=== PATIENT | female | born 1995 | race African-American/Black ===

== ENCOUNTER 2017-07-13 00:48 | Emergency (ER) | payer OTHER ==
[2017-07-13] MEDS ORDERED: ACETAMINOPHEN 325 MG TABLET PO ONE (01:52)
[2017-07-13] MEDS ORDERED: DEXAMETHASONE 4 MG TABLET PO ONE (01:52)
--- NOTE | 2017-07-13 01:53 | ER Document Report ---
ED General - General Chief Complaint: Sore Throat Stated Complaint: SORE THROAT Time Seen by Provider: 07/13/17 01:43 Notes: Patient is a 22-year-old female without a past medical history who presents with 3 days of sore throat and swollen lymph nodes. She does describe the sore throat as a constant, stretching, burning pain. She states she has tried cold medicine without any improvement of the pain. Swallowing worsens the pain. She is also noted diffuse cervical lymphadenopathy. She has not seen her primary doctor regarding today's concerns. She does not believe she has had similar symptoms in the past. She denies any difficulty breathing or swallowing. No fever. TRAVEL OUTSIDE OF THE [place] IN LAST 30 DAYS: No - Related Data Allergies/Adverse Reactions: No Known Allergies Allergy (Verified 07/13/17 00:53) Past Medical History - General Information source: Patient - Social History Smoking Status: Never Smoker Frequency of alcohol use: None Drug Abuse: None Lives with: Family Family History: Reviewed & Not Pertinent Review of Systems - Review of Systems Notes: Constitutional: Negative for fever. HENT: Positive for sore throat. Eyes: Negative for visual changes. Cardiovascular: Negative for chest pain. Respiratory: Negative for shortness of breath. Gastrointestinal: Negative for abdominal pain, vomiting or diarrhea. Genitourinary: Negative for dysuria. Musculoskeletal: Negative for back pain. Skin: Negative for rash. Neurological: Negative for headaches, weakness or numbness. 10 point ROS negative except as marked above and in HPI. Physical Exam - Vital signs Vitals: Temp Pulse Resp BP Pulse Ox 99.2 F 97 18 129/94 H 98 07/13/17 00:53 07/13/17 00:53 07/13/17 00:53 07/13/17 00:53 07/13/17 00:53 Interpretation: Normal Notes: PHYSICAL EXAMINATION: GENERAL: Well-appearing, well-nourished and in no acute distress. HEAD: Atraumatic, normocephalic. EYES: Pupils equal round and reactive to light, extraocular movements intact, sclera anicteric, conjunctiva are normal. ENT: nares patent, bilateral tonsillar exudates. Uvula is midline. Moist mucous membranes. NECK: Normal range of motion, bilateral anterior cervical lymphadenopathy. LUNGS: Breath sounds clear to auscultation bilaterally and equal. No wheezes rales or rhonchi. HEART: Regular rate and rhythm without murmurs ABDOMEN: Soft, nontender, normoactive bowel sounds. No guarding, no rebound. No masses appreciated. EXTREMITIES: Normal range of motion, no pitting or edema. No cyanosis. NEUROLOGICAL: No focal neurological deficits. Moves all extremities spontaneously and on command. PSYCH: Normal mood, normal affect. SKIN: Warm, Dry, normal turgor, no rashes or lesions noted. Course - Re-evaluation Re-evalutation: 07/13/17 01:53 Presentation of several days of sore throat in an otherwise well-appearing patient. Rapid strep is negative. History and exam are not consistent with a retropharyngeal abscess or peritonsillar abscess. Airway is patent. No difficulty handling oral secretions. Vitals within normal limits. Patient has been treated with a dose of dexamethasone. At this time will discharge with return precautions and follow-up recommendations. Verbal discharge instructions given a the bedside and opportunity for questions given. Medication warnings reviewed. Patient is in agreement with this plan and has verbalized understanding of return precautions and the need for primary care follow-up in the next 24-72 hours. - Vital Signs Vital signs: Temp Pulse Resp BP Pulse Ox 99.2 F 97 18 129/94 H 98 07/13/17 00:53 07/13/17 00:53 07/13/17 00:53 07/13/17 00:53 07/13/17 00:53 Discharge - Discharge Clinical Impression: Viral pharyngitis, Sore throat Condition: Good Disposition: HOME, SELF-CARE Additional Instructions: Your strep test is negative. Your symptoms are likely due to an viral infection and will resolve in the next 1-2 weeks. You have also been given a dose of steroids to help with your throat discomfort. Please continue to take ibuprofen 600 mg every 6 hours or Tylenol 1000 mg every 6 hours as needed for throat discomfort. You can also gargle with salt water. Continue to drink plenty of fluids. Follow-up with your primary care doctor in the next several days. Return if you become unable to swallow, have difficulty breathing, pass out, have persistent vomiting that prevents you from being able to tolerate fluids, or have any other symptoms that are concerning to you.
[2017-07-13 03:47] VITALS: BP 124/71
== END 2017-07-13 03:46 | disposition home or self-care (01) ==
LOC: ER 00:48
DX: J02.8 Acute pharyngitis due to other specified organisms (principal); B97.89 Other viral agents as the cause of diseases classified elsewhere
CPT/HCPCS: 87070; 87880; 99283

== ENCOUNTER 2017-07-27 22:14 | Emergency (ER) | payer OTHER ==
[2017-07-27 22:58] VITALS: BP 131/63
--- NOTE | 2017-07-28 00:16 | ER Document Report ---
ED General - General Chief Complaint: STD Exposure Stated Complaint: STD CHECK Time Seen by Provider: 07/28/17 00:06 Notes: Patient is a 22-year-old female who presents with concerns of a possible exposure to HSV 2. She was contacted by her former sexual partner today who told her that he may have HSV-2 and encourage her to get checked out. Patient states that she was quite panicked about this so she came immediately to the emergency department with her current significant other. She denies any symptoms of any sexually transmitted infections. No lesions, discharge, or dysuria. No prior history of sexually transmitted infections. TRAVEL OUTSIDE OF THE [place] IN LAST 30 DAYS: No - Related Data Allergies/Adverse Reactions: No Known Allergies Allergy (Verified 07/13/17 00:53) Past Medical History - General Information source: Patient - Social History Smoking Status: Never Smoker Frequency of alcohol use: None Drug Abuse: None Lives with: Spouse/Significant other Family History: Reviewed & Not Pertinent Patient has suicidal ideation: No Patient has homicidal ideation: No Renal/ Medical History: Denies: Hx Peritoneal Dialysis Review of Systems - Review of Systems Notes: Constitutional: Negative for fever. Cardiovascular: Negative for chest pain. Respiratory: Negative for shortness of breath. Gastrointestinal: Negative for vomiting Musculoskeletal: Negative for back pain. Skin: Negative for rash. Neurological: Negative for weakness or numbness. 10 point ROS negative except as marked above and in HPI. Physical Exam - Vital signs Vitals: Temp Pulse Resp BP Pulse Ox 99.5 F 83 16 131/63 H 98 07/27/17 22:57 07/27/17 22:57 07/27/17 22:57 07/27/17 22:57 07/27/17 22:57 Interpretation: Normal Notes: PHYSICAL EXAMINATION: GENERAL: Well-appearing, well-nourished and in no acute distress. HEAD: Atraumatic, normocephalic. EYES: sclera anicteric, conjunctiva are normal. ENT: Moist mucous membranes. NECK: Normal range of motion LUNGS: Normal work of breathing EXTREMITIES: no pitting or edema. No cyanosis. NEUROLOGICAL: No focal neurological deficits. Moves all extremities spontaneously and on command. PSYCH: Normal mood, normal affect. SKIN: Warm, Dry, normal turgor, no rashes or lesions noted. Course - Re-evaluation Re-evalutation: 07/28/17 00:14 Presentation of an asymptomatic patient with no symptoms concerned with a possible exposure to herpes. Her partner contacted her informed her that he may have type II herpes and instructed her that she should get checked. Patient denies any symptoms. States that she was simply "freaked out" after the phone call. I have informed the patient that given the absence of any symptoms in the illness of concern being HSV-2, it is unlikely that she has contracted this given that she has never had any lesions to the genital area. However, I have encouraged the patient and her significant other who also is a patient to have a full panel of STI testing performed at the local health department. At this time will discharge with return precautions and follow-up recommendations. Verbal discharge instructions given a the bedside and opportunity for questions given. Medication warnings reviewed. Patient is in agreement with this plan and has verbalized understanding of return precautions and the need for health department follow-up in the next 24-72 hours. - Vital Signs Vital signs: Temp Pulse Resp BP Pulse Ox 99.5 F 83 16 131/63 H 98 07/27/17 22:57 07/27/17 22:57 07/27/17 22:57 07/27/17 22:57 07/27/17 22:57 Discharge - Discharge Clinical Impression: Exposure to STD Condition: Good Disposition: HOME, SELF-CARE Additional Instructions: Please follow-up at the local health department for STI testing. Address: [address] [place] [address] Hours: Wed-Wed 8am-4pm Th 12p-4p Wed 8a-4p
== END 2017-07-28 01:12 | disposition home or self-care (01) ==
LOC: ER 22:14
DX: Z20.2 Contact with and (suspected) exposure to infections with a predominantly sexual mode of transmission (principal)
CPT/HCPCS: 99283

== ENCOUNTER 2018-09-02 15:06 | Emergency (ER) | payer SELFPAY ==
[2018-09-02 15:58] VITALS: BP 123/66
[2018-09-02] MEDS ORDERED: TETRACAINE HCL 0.5% OPH SOLN 4 ML OU ONE (16:51)
--- NOTE | 2018-09-02 16:53 | ER Document Report ---
HPI - HPI Patient complains to provider of: Eye drainage Time Seen by Provider: 09/02/18 16:37 Onset: Other - 10 days Onset/Duration: Persistent Quality of pain: Burning Pain Level: 2 Context: Patient complains of bilateral eye redness, itching and matting. Patient reports drainage that metastases her eyes closed in the morning. Patient denies any use of contact lenses or glasses. Patient denies any trauma to the eyes. Associated Symptoms: denies: Fever Exacerbated by: Denies Relieved by: Denies Similar symptoms previously: No Recently seen / treated by doctor: No - ROS ROS below otherwise negative: Yes Systems Reviewed and Negative: Yes All other systems reviewed and negative - CONSTITUTIONAL Constitutional: DENIES: Fever - EENT EENT: REPORTS: Eye problems - GASTROINTESTINAL Gastrointestinal: DENIES: Nausea - REPRODUCTIVE Reproductive: DENIES: : - DERM Skin Color: Normal Skin Problems: None Past Medical History - General Information source: Patient - Social History Smoking Status: Current Every Day Smoker Smoking Education Provided: Yes Frequency of alcohol use: Occasional Drug Abuse: None Occupation: none Family History: Reviewed & Not Pertinent - Medical History Medical History: Negative Renal/ Medical History: Denies: Hx Peritoneal Dialysis Surgical Hx: Negative Vertical Provider Document - CONSTITUTIONAL Agree With Documented VS: Yes Exam Limitations: No Limitations General Appearance: WD/WN, No Apparent Distress - INFECTION CONTROL TRAVEL OUTSIDE OF THE [place] IN LAST 30 DAYS: No - HEENT HEENT: Atraumatic, Normocephalic Notes: Mild injection of sclera bilaterally, extraocular movements intact. No corneal abrasion ulcer or dendrite, no corneal foreign body. Patient with a small scleral abrasion to left eye at the 1 o'clock position - NECK Neck: Normal Inspection - RESPIRATORY Respiratory: No Respiratory Distress - MUSCULOSKELETAL/EXTREMETIES Musculoskeletal/Extremeties: MAEW - NEURO Level of Consciousness: Awake, Alert, Appropriate Motor/Sensory: No Motor Deficit - DERM Integumentary: Warm, Dry, No Rash Course - Vital Signs Vital signs: Temp Pulse Resp BP Pulse Ox 98.1 F 70 16 123/66 100 09/02/18 15:57 09/02/18 15:57 09/02/18 15:57 09/02/18 15:57 09/02/18 15:57 Discharge - Discharge Clinical Impression: Conjunctivitis Qualifiers: Conjunctivitis type: unspecified Laterality: bilateral Qualified Code(s): H10.9 - Unspecified conjunctivitis Abrasion of sclera of left eye Qualifiers: Encounter type: initial encounter Qualified Code(s): S05.8X2A - Other injuries of left eye and orbit, initial encounter Condition: Stable Disposition: HOME, SELF-CARE Instructions: Conjunctivitis ([facility]), Eyedrop Use ([facility]) Additional Instructions: Return immediately for any new or worsening symptoms Followup with your primary care provider, call tomorrow to make a followup appointment Follow-up with aba tutor for any persistent problems Prescriptions: Polymyxin B Sulfate/Tmp [Polytrim Oph Soln 10 ml] 1 drop BTH_EYE ASDIR #1 bottle Forms: Smoking Cessation Education Referrals: [facility] [Provider Group] - Follow up as needed
== END 2018-09-02 17:49 | disposition home or self-care (01) ==
LOC: ER 15:06
DX: S05.8X2A Other injuries of left eye and orbit, initial encounter (principal); H10.9 Unspecified conjunctivitis; H57.13 Ocular pain, bilateral; F17.200 Nicotine dependence, unspecified, uncomplicated; X58.XXXA Exposure to other specified factors, initial encounter
CPT/HCPCS: 99282; J3490

== ENCOUNTER 2019-05-22 07:52 | Emergency (ER) | payer SELFPAY ==
[2019-05-22 08:37] LABS: APPEARANCE,URINE SLIGHTLY-CLOUDY; BILIRUBIN,URINE NEGATIVE (NEGATIVE); COLOR,URINE YELLOW; GLUCOSE, URINE >=500 mg/dL (NEGATIVE); KETONES,URINE 20 mg/dL (NEGATIVE); LEUKOCYTE ESTERASE,URINE NEGATIVE (NEGATIVE); NITRITE,URINE NEGATIVE (NEGATIVE); PROTEIN,URINE NEGATIVE (NEGATIVE); URINE SPECIFIC GRAVITY 1.042; UROBILINOGEN,URINE NEGATIVE mg/dL (<2.0)
--- NOTE | 2019-05-22 09:10 | ER Document Report ---
HPI - HPI Time Seen by Provider: 05/22/19 08:55 Pain Level: 2 Context: Patient is a 24-year-old female presents to the emergency department with a chief complaint of vaginal pain. Patient reports she does have a history of genital herpes. Patient reports a few weeks ago she thought she may be developing an outbreak so she did start her antiviral medication which she takes once a day for the past few weeks. Patient reports she is not sure if this is helping. Patient reports over the past 5 days she has noted cuts all over the outside of her vagina and inner thighs. Patient reports they do lose blood. Patient reports she has had external genitalia swelling and itching. Patient reports some redness to the outside of the vagina. Patient reports she has had a pink as discharge. Patient reports she is sexually active but not on any control. Patient reports she does have a PCOS history. Patient denies fever. Patient denies urinary symptoms. - REPRODUCTIVE Reproductive: DENIES: : Past Medical History - General Information source: Patient - Social History Smoking Status: Former Smoker Chew tobacco use (# tins/day): No Lives with: Friend Family History: Reviewed & Not Pertinent Patient has suicidal ideation: No Patient has homicidal ideation: No - Past Medical History Cardiac Medical History: Reports: None Pulmonary Medical History: Reports: None EENT Medical History: Reports: None Neurological Medical History: Reports: None Endocrine Medical History: Reports: None Renal/ Medical History: Reports: None. Denies: Hx Peritoneal Dialysis Malignancy Medical History: Reports: None GI Medical History: Reports: None Musculoskeletal Medical History: Reports None Skin Medical History: Reports None Psychiatric Medical History: Reports: None Traumatic Medical History: Reports: None Infectious Medical History: Reports: None Surgical Hx: Negative Vertical Provider Document - CONSTITUTIONAL Agree With Documented VS: Yes Exam Limitations: No Limitations General Appearance: No Apparent Distress - INFECTION CONTROL TRAVEL OUTSIDE OF THE [place] IN LAST 30 DAYS: No - HEENT HEENT: Atraumatic, Normocephalic, PERRLA - NECK Neck: Normal Inspection - RESPIRATORY Respiratory: Breath Sounds Normal, No Respiratory Distress - CARDIOVASCULAR Cardiovascular: Regular Rate, Regular Rhythm - GI/ABDOMEN Gastrointestinal: Abdomen Soft, Abdomen Non-Tender - NEURO Level of Consciousness: Awake, Alert, Appropriate - DERM Integumentary: Warm, Dry Course - Re-evaluation Re-evalutation: 05/22/19 09:10 We will obtain pelvic specimens to include a wet mount and gonorrhea and Chlamydia testing. - Vital Signs Vital signs: Temp Pulse Resp BP Pulse Ox 98.4 F 85 16 125/66 100 05/22/19 07:56 05/22/19 07:56 05/22/19 07:56 05/22/19 07:56 05/22/19 07:56 - Laboratory Laboratory results interpreted by me: 05/22/19 08:15 Urine Glucose (UA) >=500 H Urine Ketones 20 H Urine Ascorbic Acid 20 H 05/22/19 10:12 Laboratory 05/22/19 05/22/19 08:15 09:40 Urine Color YELLOW Urine Appearance SLIGHTLY-CLOUDY Urine pH 5.0 Ur Specific Brandon 1.042 Urine Protein NEGATIVE Urine Glucose (UA) >=500 H Urine Ketones 20 H Urine Blood NEGATIVE Urine Nitrite NEGATIVE Urine Bilirubin NEGATIVE Urine Urobilinogen NEGATIVE Ur Leukocyte Esterase NEGATIVE Urine WBC (Auto) 6 Urine RBC (Auto) 4 Squamous Epi Cells Auto 5 Urine Mucus (Auto) RARE Urine Ascorbic Acid 20 H Epi Cells (Wet Prep) 3+ EPITHELIALS SEEN Bacteria (Wet Prep) 3+ BACTERIA SEEN Trichomonas (Wet Prep) NO TRICHOMONAS SEEN Vaginal WBC 4+ WBCS SEEN Vaginal Yeast YEAST SEEN Procedures - Pelvic Exam Pelvic exam Time completed: 09:45 Cultures obtained: Yes Wet prep obtained: Yes Notes: 05/22/19 09:58 Swelling and erythema noted to the external genitalia. There is a white vaginal discharge. Patient does have some excoriation noted to the creases of the labia majora. There is not any open lesions consistent with herpes outbreak. Patient tolerated the insertion of the speculum fairly well. I was able to visualize the cervix which was closed. There was a significant large amount of white thick discharge. Specimens were obtained. Discharge - Discharge Clinical Impression: Mackenzie vaginitis, Vaginal pain Condition: Stable Disposition: HOME, SELF-CARE Additional Instructions: Today you are seen in the emergency department for vaginal pain. Your specimens were positive for yeast and bacterial infection. The bacterial infection is called bacterial vaginosis in which she will be treated with Flagyl. Flagyl is an antibiotic in which he will take twice a day for 7 days. Do not drink alcohol while on this medication as it can make you violently ill. We will give you a one-time dose of Diflucan here in the emergency department. You may repeat this one-time dose in 72 hours if your symptoms do not improve. Please follow-up with the health department or your HEAT TREAT SUPERVISOR for a follow-up to make sure that this infection and yeast has improved. You did have a large amount of glucose, this is sugar in the urine. This could be from excessive drinking of sweet tea, juice and drinks that are full of sugar as you have reported you drink. You do need to have your urine rechecked to make sure that this has improved. Some patients who have significant glucose in the urine could potentially have diabetes. Uncontrolled diabetes can lead to yeast infections. Vaginosis, Bacterial Your exam shows you have bacterial vaginosis. This condition is due to an overgrowth of bacteria in the vagina. Symptoms may include vaginal itching or pain, a smelly discharge, and sometimes burning with urination. Normally this is not transmitted by sexual contact. Vaginosis can be treated with oral or topical antibiotics. Metronidazole (Flagyl) pills are usually effective. Topical vaginal creams include Cleocin and Metro-Gel. You should avoid sexual contact until your symptoms are all better. Call the doctor if you develop pelvic pain, fever, or problems with urination, or if you don't improve as expected. Vaginal Yeast Infection You have evidence of a yeast infection -- called "mackenzie." A vaginal yeast infection often causes itching and discharge. While not dangerous, it can be very unpleasant. A yeast infection often follows the use of powerful antibiotics. It is more likely to occur in diabetics. The treatment now is usually a single pill of Diflucan, but also an antifungal cream or suppository may be used for a few days. You do not need to avoid sexual intercourse. Recurrences are common. You can make a recurrence less likely by wearing cotton underwear and avoiding tight clothing. For mild recurrences, you can try [id number] creams or suppositories that are made specifically for yeast. If the symptoms do not resolve, you should follow up for re-examination. Sometimes treatment of the sexual partner is necessary if infections are recurrent. Prescriptions: Fluconazole [Diflucan] 150 mg PO ONCE PRN #1 tablet PRN Reason: Metronidazole [Flagyl] 500 mg PO BID 7 Days #14 tablet Referrals: [facility] [Provider Group] - Follow up as needed COBY JACOBS MD [EMERITUS] - Follow up as needed GRACIE ROWLAND MD [ACTIVE STAFF] - Follow up as needed AVELINA ROWLAND NP [NURSE PRACTITIONER] - Follow up as needed
[2019-05-22 09:57] LABS: BACTERIA (WET MOUNT) 3+ BACTERIA SEEN; EPITHELIALS (WET MOUNT) 3+ EPITHELIALS SEEN; T.VAGINALIS (WET MOUNT) NO TRICHOMONAS SEEN; WBCS (WET MOUNT) 4+ WBCS SEEN; YEAST (WET MOUNT) YEAST SEEN
[2019-05-22] MEDS ORDERED: FLUCONAZOLE 100 MG TABLET PO ONE (10:32)
[2019-05-22] MEDS ORDERED: METRONIDAZOLE 500 MG TABLET PO ONE (10:32)
[2019-05-22 10:51] VITALS: BP 122/70
[2019-05-22 11:28] LABS: CHLAM PCR NOT DETECTED (NOT DETECT)
== END 2019-05-22 10:50 | disposition home or self-care (01) ==
LOC: ER 07:52
DX: B37.3 Candidiasis of vulva and vagina (principal); R10.2 Pelvic and perineal pain; N89.8 Other specified noninflammatory disorders of vagina; E28.2 Polycystic ovarian syndrome; Z87.891 Personal history of nicotine dependence
CPT/HCPCS: 81001; 81025; 87210; 87491; 87591; 99283

== ENCOUNTER 2019-06-03 15:27 | Emergency (ER) | payer SELFPAY ==
[2019-06-03 15:46] VITALS: BP 142/91
--- NOTE | 2019-06-03 16:06 | ER Document Report ---
ED Medical Screen (RME) - General Chief Complaint: Hand Swelling Stated Complaint: LEFT HAND INJURY Time Seen by Provider: 06/03/19 16:01 Mode of Arrival: Ambulatory Information source: Patient Notes: 24-year-old female presented to ED for swelling and pain to the nailbed of the left index finger. She does appear to have a paronychia. She states she got her nails done a couple days ago. She does has mild swelling around the nailbed. I have had pets dark PEER SPECIALIST look at it. She stated she would go ahead and open up the area. I have greeted and performed a rapid initial assessment of this patient. A comprehensive ED assessment and evaluation of the patient, analysis of test results and completion of medical decision making process will be conducted by an additional ED providers. TRAVEL OUTSIDE OF THE [place] IN LAST 30 DAYS: No - Related Data Allergies/Adverse Reactions: No Known Allergies Allergy (Verified 06/03/19 15:58) Past Medical History Renal/ Medical History: Denies: Hx Peritoneal Dialysis Physical Exam - Vital signs Vitals: Temp Pulse Resp BP Pulse Ox 97.9 F 83 18 142/91 H 98 06/03/19 15:45 06/03/19 15:45 06/03/19 15:45 06/03/19 15:45 06/03/19 15:45 Course - Vital Signs Vital signs: Temp Pulse Resp BP Pulse Ox 97.9 F 83 18 142/91 H 98 06/03/19 15:45 06/03/19 15:45 06/03/19 15:45 06/03/19 15:45 06/03/19 15:45
--- NOTE | 2019-06-03 16:15 | ER Document Report ---
HPI - HPI Patient complains to provider of: left index finger pain Time Seen by Provider: 06/03/19 16:01 Onset: Other - 2 days Quality of pain: Achy Pain Level: 2 Context: 23-year-old female presents emergency department with left index finger pain. Reports 2 days ago started swelling around her fingernail. She poked it with a needle yesterday and obtained a large amount of discharge. Complains of finger still hurting. Denies biting fingers. Denies fever vomiting diarrhea. Patient is right-handed Associated Symptoms: None Exacerbated by: Denies Relieved by: Denies Similar symptoms previously: No Recently seen / treated by doctor: No - REPRODUCTIVE LMP: now Reproductive: DENIES: : Past Medical History - General Information source: Patient Last Menstrual Period: Current - Social History Smoking Status: Never Smoker Chew tobacco use (# tins/day): No Frequency of alcohol use: None Drug Abuse: None Lives with: Family Family History: Reviewed & Not Pertinent Patient has suicidal ideation: No Patient has homicidal ideation: No Endocrine Medical History: Reports: Other - PCOS Renal/ Medical History: Denies: Hx Peritoneal Dialysis Surgical Hx: Negative Vertical Provider Document - CONSTITUTIONAL Agree With Documented VS: Yes Exam Limitations: No Limitations General Appearance: WD/WN, No Apparent Distress - INFECTION CONTROL TRAVEL OUTSIDE OF THE [place] IN LAST 30 DAYS: No - HEENT HEENT: Atraumatic, Normocephalic - NECK Neck: Supple - RESPIRATORY Respiratory: No Respiratory Distress - CARDIOVASCULAR Cardiovascular: Regular Rate - MUSCULOSKELETAL/EXTREMETIES Musculoskeletal/Extremeties: MAEW, FROM, Tender - Distal left index finger with paronychia laterally and epionychium - NEURO Level of Consciousness: Awake, Alert, Appropriate Motor/Sensory: No Motor Deficit - DERM Integumentary: Warm, Dry, Abscess Course - Vital Signs Vital signs: Temp Pulse Resp BP Pulse Ox 97.9 F 83 18 142/91 H 98 06/03/19 15:45 06/03/19 15:45 06/03/19 15:45 06/03/19 15:45 06/03/19 15:45 Procedures - Incision and Drainage Left 2nd digit Time completed: 16:46 Anesthetic type: 1% Lidocaine mL's of anesthetic: 1 Incision Method: Incision made with needle Amount/type of drainage: small drainage from paronychia Hands back picture: 1 - Lidocaine injected with needle small amount of drainage obtained Discharge - Discharge Clinical Impression: Paronychia Condition: Stable Disposition: HOME, SELF-CARE Instructions: Cephalexin ([facility]), Paronychia ([facility]), Post Incision and Drainage Additional Instructions: *You have been treated for a paronychia *Take medication as prescribed *Monitor the finger for signs of increasing infection such as increasing pain, redness, swelling, warmth *Keep the finger clean *Follow up with a primary care provider within one week for recheck *Return to ED for signs of increasing infection, worsening condition, changes, needs Monitor your blood pressure. Your blood pressure was elevated today. This may be because you were anxious, in pain or because you need medication. It is important to follow up with your primary care provider for full evaluation. Prescriptions: Cephalexin Monohydrate [Keflex 500 mg Capsule] 500 mg PO QID #20 capsule Forms: Elevated Blood Pressure
== END 2019-06-03 17:00 | disposition home or self-care (01) ==
LOC: ER 15:27
PROC: 0H9QXZZ Drainage of Finger Nail, External Approach (ICD-10-PCS; principal; 2019-06-03)
DX: L03.012 Cellulitis of left finger (principal); M79.645 Pain in left finger(s); M79.89 Other specified soft tissue disorders
CPT/HCPCS: 99283

== ENCOUNTER 2019-06-10 22:12 | Emergency (ER) | payer SELFPAY ==
[2019-06-10 22:24] VITALS: BP 124/78
[2019-06-10] MEDS ORDERED: ACETAMINOPHEN 325 MG TABLET PO ONE (23:05)
--- NOTE | 2019-06-10 23:05 | ER Document Report ---
ED Breast Problem - General Chief Complaint: Breast Lump Stated Complaint: LEFT BREAST PAIN Time Seen by Provider: 06/10/19 22:43 TRAVEL OUTSIDE OF THE [place] IN LAST 30 DAYS: No - HPI Notes: Patient is a 24-year-old female that presents to the emergency department for chief complaint of left breast pain. Patient states that she had her nipples pierced in January 2019. She states intermittently she has had pain and infections on the left side. She states today she noticed an increasing area of redness and swelling and therefore removed her nipple ring today. She denies any drainage from her nipple. She denies any fevers or chills. She denies history of skin infections or abscesses in the past. She has not taken anything for the pain. She denies any relieving factors but states it is worse when she touches the left breast or walks. Past Medical History: Negative Past Surgical History: Negative Social History: Denies drugs alcohol and tobacco Family History: Reviewed and noncontributory for presenting illness Allergies: Reviewed, see documented allergy list. REVIEW OF SYSTEMS: CONSTITUTIONAL : No fever No chills No diaphoresis No recent illness EENT: No vision changes No congestion No sore throat CARDIOVASCULAR: No chest pain No palpitations RESPIRATORY: No shortness of breath No cough No difficulty breathing GASTROINTESTINAL: No abdominal pain No nausea No vomiting No diarrhea GENITOURINARY: Left breast pain No dysuria No hematuria No difficulty urinating MUSCULOSKELETAL: No back pain No leg pain No arm pain SKIN: No rashes No lesions LYMPHATIC: No swollen, enlarged glands. NEUROLOGICAL: No lightheadedness No headache No weakness No paresthesias PSYCHIATRIC: No anxiety No depression PHYSICAL EXAMINATION: Vital signs reviewed, nursing noted reviewed. GENERAL: Well-appearing, well-nourished and in no acute distress. HEAD: Atraumatic, normocephalic. EYES: Eyes appear normal, extraocular movements intact, sclera anicteric, conjunctiva are normal. ENT: nares patent, oropharynx clear without exudates. Moist mucous membranes. NECK: Normal range of motion, supple without lymphadenopathy LUNGS: Breath sounds clear to auscultation bilaterally and equal. No wheezes rales or rhonchi. HEART: Regular rate and rhythm without murmurs ABDOMEN: Soft, nontender, normoactive bowel sounds. No rebound, guarding, or rigidity. No masses appreciated. EXTREMITIES: Nontender, good range of motion, no pitting or edema. : Area of tenderness and induration with slight erythema overlying on inferior medial aspect of left breast. No drainage from left nipple. NEUROLOGICAL: No focal neurological deficits. Moves all extremities spontaneously Motor and sensory grossly intact on exam. PSYCH: Normal mood, normal affect. SKIN: Warm, Dry, normal turgor, slight erythema to the left inferior medial breast - Related Data Allergies/Adverse Reactions: No Known Allergies Allergy (Verified 06/03/19 15:58) Past Medical History - Social History Smoking Status: Never Smoker Family History: Reviewed & Not Pertinent Patient has suicidal ideation: No Patient has homicidal ideation: No Renal/ Medical History: Denies: Hx Peritoneal Dialysis Physical Exam - Vital signs Vitals: Temp Pulse Resp BP Pulse Ox 98.0 F 91 16 124/78 97 06/10/19 22:23 06/10/19 22:23 06/10/19 22:23 06/10/19 22:23 06/10/19 22:23 Course - Re-evaluation Re-evalutation: 06/10/19 23:05 Vitals reviewed. Nursing notes reviewed. Patient has an area of tenderness and induration on her left breast concerning for possible abscess. Ultrasound will be obtained for further evaluation. Patient given Tylenol for pain. 06/11/19 00:02 Patient's ultrasound shows a hypoechoic area without fluid collection requiring drainage. She does have erythema and tenderness over the area and this may represent a localized mastitis. Patient will be started on Keflex for concern that this may be infectious. She was also notified that this may be malignant and she needs to have a mammogram in the next 2 weeks. Patient will be referred to [facility] for follow-up and mammography referral. She was counseled on return precautions. She is stable at discharge. Breast Ultrasound 06/10/19 23:00 IMPRESSION: 1.4 cm left breast lesion corresponds to an area of symptomatology. No evidence of drainable fluid collection or abscess. Differential diagnosis includes neoplasm. Recommend diagnostic bilateral mammogram/sonogram, including on-site dedicated bilingual receptionist within two weeks. BI-RADS: 0, Further Imaging Required - Vital Signs Vital signs: Temp Pulse Resp BP Pulse Ox 98.0 F 91 16 124/78 97 06/10/19 22:23 06/10/19 22:23 06/10/19 22:23 06/10/19 22:23 06/10/19 22:23 Discharge - Discharge Clinical Impression: Left breast mass Condition: Stable Disposition: HOME, SELF-CARE Additional Instructions: There was a 1.4 cm lesion on your left breast that may be cancerous. You need to have a mammogram performed in the next 2 weeks for further evaluation. Please contact [facility] first thing Wednesday morning to establish follow-up appointment as soon as possible Return to the emergency room for new or worsening symptoms Take Tylenol or ibuprofen as directed on the label as needed for pain Take all medications as prescribed Prescriptions: Cephalexin Monohydrate [Keflex 500 mg Capsule] 500 mg PO BID 7 Days capsule Referrals: [facility] [Provider Group] - Follow up as needed [facility] [Provider Group] - 06/12/19
--- NOTE | 2019-06-10 23:54 | RADIOLOGY REPORT (SQ) ---
EXAM DESCRIPTION: US BREAST UNILATERAL LIMITED COMPLETED DATE/TME: 06/10/2019 23:00 CLINICAL HISTORY: 24 years Female, left breast abscess Comparison: None. Technique: Targeted left breast sonogram to assess for possible abscess. LIMITATIONS: None. FINDINGS: 1.4 x 1.1 x 0.6 cm heterogeneous, hypoechoic, wider than tall, well marginated irregular of the left breast, 7:00 position corresponds to an area of symptomatology. No significant associated vascularity. No drainable fluid collection. No abscess. IMPRESSION: 1.4 cm left breast lesion corresponds to an area of symptomatology. No evidence of drainable fluid collection or abscess. Differential diagnosis includes neoplasm. Recommend diagnostic bilateral mammogram/sonogram, including on-site dedicated timber spotter within two weeks. BI-RADS: 0, Further Imaging Required
== END 2019-06-11 00:26 | disposition home or self-care (01) ==
LOC: ER 22:12
DX: N63.24 Unspecified lump in the left breast, lower inner quadrant (principal); N64.4 Mastodynia
CPT/HCPCS: 76642; 99283

== ENCOUNTER 2020-02-09 15:59 | Emergency (ER) | payer SELFPAY ==
--- NOTE | 2020-02-09 18:09 | ER Document Report ---
ED Medical Screen (RME) - General Stated Complaint: BREAST PAIN-LEFT Time Seen by Provider: 02/09/20 18:02 Notes: Patient is a 24-year-old female who presents the emergency department with a chief complaint of left breast pain. Patient states that she got her nipples pierced about 5 days ago and noticed that she had some purulent drainage to her piercing on the left side the past couple of days. Patient ended up taking out the piercing. Patient states that she has had a similar problem in the past. Reports that she had this done in the past. Exam: Tenderness noted to left breast at 6 o'clock position. CORIN Mcallister at bedside for exam. I have greeted and performed a rapid initial assessment of this patient. A comprehensive ED assessment and evaluation of the patient, analysis of test results and completion of medical decision making process will be conducted by an additional ED providers. TRAVEL OUTSIDE OF THE [place] IN LAST 30 DAYS: No - Related Data Allergies/Adverse Reactions: No Known Allergies Allergy (Verified 06/03/19 15:58) Past Medical History Renal/ Medical History: Denies: Hx Peritoneal Dialysis Physical Exam - Vital signs Vitals: Temp Pulse Resp BP Pulse Ox 98.4 F 108 H 16 124/83 98 02/09/20 16:09 02/09/20 16:09 02/09/20 16:02/09/20 16:02/09/20 16:09 Course - Vital Signs Vital signs: Temp Pulse Resp BP Pulse Ox 98.4 F 108 H 16 124/83 98 02/09/20 16:09 02/09/20 16:09 02/09/20 16:02/09/20 16:02/09/20 16:09
--- NOTE | 2020-02-09 22:00 | RADIOLOGY REPORT (SQ) ---
EXAM DESCRIPTION: US BREAST UNILATERAL LEFT LIMITED COMPLETED DATE/TME: 02/09/2020 18:07 CLINICAL HISTORY: 24 years, Female, left breast pain; eval abscess? COMPARISON: None. TECHNIQUE: LIMITATIONS: None. FINDINGS: Ultrasound of the left breast was performed, in the region of the patient's pain. There is no evidence of a focal fluid collection, in the area of clinical concern. IMPRESSION: No focal fluid collection. copyright 2010 [email or web address]- All Rights Reserved
--- NOTE | 2020-02-10 00:06 | ER Document Report ---
ED Breast Problem - General Chief Complaint: Breast Lump Stated Complaint: BREAST PAIN-LEFT Time Seen by Provider: 02/09/20 18:02 Primary Care Provider: [facility] [Provider Group] - Follow up in 3-5 days Mode of Arrival: Medic Information source: Patient Notes: 24-year-old female presented to ED for complaint of left breast pain. She states she had her nipples pierced about 5 days before coming in and she noticed a purulent drainage from the piercing on the left breast. She states she has had some redness and some firmness to the area since then. She came into the emergency room to have a abscess ruled out. She was seen in the triage area and was sent for an ultrasound of the breast. The ultrasound did not show an abscess any fluid collection in the breast. TRAVEL OUTSIDE OF THE [place] IN LAST 30 DAYS: No - HPI Patient complains to provider of: Lump, Redness, Swelling, Tenderness - Left breast Onset: Other - 2days Onset/Duration: Gradual, Persistent Quality of pain: Achy, Sharp Severity: Moderate Pain Level: 3 Context: Piercing Discharge description: None Associated Symptoms: Other - Left breast redness swelling pain lump Similar symptoms previously: Yes Recently seen / treated by doctor: No - Related Data Allergies/Adverse Reactions: No Known Allergies Allergy (Verified 06/03/19 15:58) Past Medical History - General Information source: Patient - Social History Smoking Status: Never Smoker Cigarette use (# per day): No Frequency of alcohol use: None Drug Abuse: None Family History: Reviewed & Not Pertinent - Past Medical History Cardiac Medical History: Reports: None Pulmonary Medical History: Reports: None EENT Medical History: Reports: None Neurological Medical History: Reports: None Endocrine Medical History: Reports: None Renal/ Medical History: Reports: None Malignancy Medical History: Reports: None GI Medical History: Reports: None Musculoskeletal Medical History: Reports None Skin Medical History: Reports None Psychiatric Medical History: Reports: None Traumatic Medical History: Reports: None Infectious Medical History: Reports: None Surgical Hx: Negative Past Surgical History: Reports: None - Immunizations Immunizations up to date: Yes Review of Systems - Review of Systems Constitutional: No symptoms reported EENT: No symptoms reported Cardiovascular: No symptoms reported Respiratory: No symptoms reported Gastrointestinal: No symptoms reported Genitourinary: No symptoms reported Female Genitourinary: No symptoms reported Musculoskeletal: No symptoms reported Skin: Other - Lump left breast redness pain swelling Hematologic/Lymphatic: No symptoms reported Neurological/Psychological: No symptoms reported -: Yes All other systems reviewed and negative Physical Exam - Vital signs Vitals: Temp Pulse Resp BP Pulse Ox 98.4 F 108 H 16 124/83 98 02/09/20 16:09 02/09/20 16:09 02/09/20 16:02/09/20 16:02/09/20 16:09 Interpretation: Normal - General General appearance: Appears well, Alert - HEENT Head: Normocephalic, Atraumatic Eyes: Normal Pupils: PERRL - Respiratory Respiratory status: No respiratory distress Chest status: Nontender Breath sounds: Normal Chest palpation: Normal - Cardiovascular Rhythm: Regular Heart sounds: Normal auscultation Murmur: No - Abdominal Inspection: Normal Distension: No distension Bowel sounds: Normal Tenderness: Nontender Organomegaly: No organomegaly - Back Back: Normal, Nontender - Extremities General upper extremity: Normal inspection, Nontender, Normal color, Normal ROM, Normal temperature General lower extremity: Normal inspection, Nontender, Normal color, Normal ROM, Normal temperature, Normal weight bearing. No: Kt's sign - Neurological Neuro grossly intact: Yes Cognition: Normal Orientation: AAOx4 Maggy Coma Scale Eye Opening: Spontaneous Maggy Coma Scale Verbal: Oriented Maggy Coma Scale Motor: Obeys Commands [place] Coma Scale Total: 15 Speech: Normal Motor strength normal: LUE, RUE, LLE, RLE Sensory: Normal - Psychological Associated symptoms: Normal affect, Normal mood - Skin Skin Temperature: Warm Skin Moisture: Dry Skin Color: Normal Location of irregularity: Other - Left breast lump tenderness at 6 o'clock position noted definite abscess according to ultrasound reading there was no fluctuance to palpation. Patient was examined in the presence of [facility] - Vital Signs Vital signs: Temp Pulse Resp BP Pulse Ox 98.4 F 108 H 16 124/83 98 02/09/20 16:09 02/09/20 16:09 02/09/20 16:02/09/20 16:02/09/20 16:09 Discharge - Discharge Clinical Impression: Cellulitis of left breast Condition: Stable Disposition: HOME, SELF-CARE Additional Instructions: CELLULITIS: You have an infection of your skin and underlying soft tissues called cellulitis. This is due to bacteria, which can enter through any break in the skin, or even through an irritated hair follicle. Untreated, cellulitis will usually worsen. Antibiotics are required. Usually, warm packs or warm soaks, and elevation of the infected area are recommended. You should start getting better within 24 to 36 hours. Most infections respond quickly to the right medication. Follow-up care is important, however, to check for abscess (boil) formation, unsuspected foreign body, or resistant infection. If you develop fever, chills, or if the area of infection is becoming rapidly more swollen or painful, call the doctor at once. Cephalexin The antibiotic you've been prescribed is a member of the cephalosporin class. This type of antibiotic covers a wide variety of infections, including those of the skin, lungs, and urinary tract. It's useful for staph infections. This antibiotic is slightly similar to the penicillin family. In rare cases, a person who is allergic to penicillin will also be allergic to this medication. If you have had a severe allergic reaction to penicillin, and have not taken this antibiotic since that time, notify your doctor. Antibiotics which cover many germs ("broad spectrum" antibiotics) are more likely to cause diarrhea or "yeast" infections. Women prone to vaginal yeast problems may suffer an attack after taking this antibiotic. In infants, oral thrush (white spots "stuck" on the cheek) or yeast diaper rash may result. See your doctor if these problems occur. Call at once if you develop itching, hives, shortness of breath, or lightheadedness. Epsom Salt Soaks Soak the wound area in a container of warm epsom salt water. If you can't get the wound area into a bucket or mann, use a folded towel soaked in the epsom salt solution and apply to the area. Use clean hot tap water (about the temperature of a very warm bath), mixing in about one (1) teaspoon for every pint of water. Two gallon --> 16 teaspoons Epsom Salts One gallon --> 8 teaspoons Epsom Salts Two quarts --> 4 teaspoons Epsom Salts One quart --> 2 teaspoons Epsom Salts Soak the wound for about 20 minutes while gently moving it around in the water. Repeat this four (4) times a day. Acetaminophen Acetaminophen may be taken for pain relief or fever control. It's much safer than aspirin, offering a wider range of "safe" dosages. It is safe during . Some brand names are Tylenol, Panadol, Datril, Anacin 3, Tempra, and Liquiprin. Acetaminophen can be repeated every four hours. The following are maximum recommended dosages: WEIGHT Dose Drops Elixir Chewable(80mg) (LBS.) drprs=droppers tsp=teaspoon 6 40 mg .4 ml (1/2) 6-11 80 mg .8 ml (full) 1/2 tsp 1 tab 12-16 120 mg 1 1/2 drprs 3/4 tsp 1 1/2 tabs 17-23 160 mg 2 drprs 1 tsp 2 tabs 24-30 240 mg 3 drprs 1 1/2 tsp 3 tabs 30-35 320 mg 2 tsp 4 tabs 36-41 360 mg 2 1/4 tsp 4 1/2 tabs 42-47 400 mg 2 1/2 tsp 5 tabs 48-53 480 mg 3 tsp 6 tabs 54-59 520 mg 3 1/4 tsp 6 1/2 tabs 60-64 560 mg 3 1/2 tsp 7 tabs 65-70 600 mg 3 3/4 tsp 7 1/2 tabs 71-76 640 mg 4 tsp 8 tabs 77-82 720 mg 4 1/2 tsp 9 tabs 83-88 800 mg 5 tsp 10 tabs >89 pounds or adults 650 mg to 900 mg Acetaminophen can be repeated every four hours. Maximum daily dose not to exceed 4000 mg. These maximum recommended dosages are slightly higher than the dosages written on the product container, but these dosages are very safe and well below the toxic dosage for acetaminophen. FOLLOW-UP CARE: If you have been referred to a physician for follow-up care, call the physicians office for an appointment as you were instructed or within the next two days. If you experience worsening or a significant change in your symptoms, notify the physician immediately or return to the Emergency Department at any time for re-evaluation. Prescriptions: Cephalexin Monohydrate [Keflex 500 mg Capsule] 500 mg PO Q6H 5 Days #20 capsule Forms: Elevated Blood Pressure Referrals: [facility] [Provider Group] - Follow up in 3-5 days
[2020-02-10] MEDS ORDERED: CEPHALEXIN 500 MG CAPSULE PO ONE (00:17)
[2020-02-10 00:28] VITALS: BP 133/81
== END 2020-02-10 00:37 | disposition home or self-care (01) ==
LOC: ER 15:59
DX: N61.0 Mastitis without abscess (principal)
CPT/HCPCS: 76642; 99283

== ENCOUNTER 2020-04-02 07:45 | Emergency (ER) | payer SELFPAY ==
[2020-04-02 09:02] LABS: APPEARANCE,URINE CLEAR; BILIRUBIN,URINE NEGATIVE (NEGATIVE); COLOR,URINE STRAW; GLUCOSE, URINE >=500 mg/dL (NEGATIVE); KETONES,URINE 80 mg/dL (NEGATIVE); PROTEIN,URINE NEGATIVE (NEGATIVE); URINE SPECIFIC GRAVITY 1.038; UROBILINOGEN,URINE NEGATIVE mg/dL (<2.0)
[2020-04-02 09:55] LABS: BACTERIA (WET MOUNT) 4+ BACTERIA SEEN; RBCS (WET MOUNT) NO RBCS SEEN; T.VAGINALIS (WET MOUNT) NO TRICHOMONAS SEEN; WBCS (WET MOUNT) 4+ WBCS SEEN; YEAST (WET MOUNT) NO YEAST SEEN
[2020-04-02 10:30] LABS: CHLAM PCR NOT DETECTED (NOT DETECT)
--- NOTE | 2020-04-02 11:36 | ER Document Report ---
ED GI/ - General Chief Complaint: Vaginal Discharge Stated Complaint: SKIN IRRITATION/VAGINAL AREA Time Seen by Provider: 04/02/20 08:27 Primary Care Provider: NILA TORRES MD [ACTIVE STAFF] - Follow up as needed Mode of Arrival: Ambulatory Information source: Patient Notes: Patient is a 24-year-old female comes emergency room complaining of vaginal discharge. Patient states it started approximately 2 weeks ago and is slightly itchy. Patient is sexually active with the same person for a number of years. She denies any sexually transmitted type diseases possibility. She has a history of vaginal herpes though. She denies any pain or discomfort in the vaginal area at this time with exception of her itching. Patient states she is up-to-date with her [facility] saw them last year for her Pap smear. Have one other instance in 2019 with a similar presentation turned out to be bacterial vaginosis. TRAVEL OUTSIDE OF THE [place] IN LAST 30 DAYS: No - HPI Patient complains to provider of: Vaginal discharge. No: Abdominal pain, Diarrhea, Pelvic pain, Vaginal pain, Vomiting Onset: Last week Timing/Duration: Gradual Quality of pain: Other - Itchy Severity at maximum: Moderate Severity in ED: Moderate Pain Level: 2 Location: Suprapubic, Vaginal, Vulvar. No: LUQ, LLQ, RUQ, RLQ, Left flank, Right flank, Low back Vaginal bleeding (Compared to normal period): None : 0 - Related Data Allergies/Adverse Reactions: No Known Allergies Allergy (Verified 06/03/19 15:58) Past Medical History - General Information source: Patient - Social History Smoking Status: Never Smoker Cigarette use (# per day): No Chew tobacco use (# tins/day): No Smoking Education Provided: No Frequency of alcohol use: Occasional Drug Abuse: None Lives with: Family Family History: Reviewed & Not Pertinent Renal/ Medical History: Denies: Hx Peritoneal Dialysis - Immunizations Immunizations up to date: Yes Review of Systems - Review of Systems Constitutional: No symptoms reported EENT: No symptoms reported Cardiovascular: No symptoms reported Respiratory: No symptoms reported Gastrointestinal: No symptoms reported Genitourinary: See HPI, Discharge Female Genitourinary: Vaginal discharge Musculoskeletal: No symptoms reported Skin: No symptoms reported Hematologic/Lymphatic: No symptoms reported Neurological/Psychological: No symptoms reported -: Yes All other systems reviewed and negative Physical Exam - Vital signs Vitals: Temp Pulse Resp BP Pulse Ox 97.9 F 91 16 123/72 99 04/02/20 07:49 04/02/20 07:49 04/02/20 07:49 04/02/20 07:49 04/02/20 07:49 Interpretation: Normal - Notes Notes: PHYSICAL EXAMINATION: GENERAL: Well-appearing, well-nourished and in no acute distress. HEAD: Atraumatic, normocephalic. LUNGS: Breath sounds clear to auscultation bilaterally and equal. No wheezes rales or rhonchi. HEART: Regular rate and rhythm without murmurs ABDOMEN: Soft, nontender, nondistended abdomen. No guarding, no rebound. No masses appreciated. Female ; examination patient's area complains of vaginal area. Examination of the external genitalia shows it to be a normal appearance with no excoriations or other outward signs of infection. Opening of the labia shows some dry mucosa in the inner folds of the superior portions of the labia majora and labia minora tissue here looks somewhat dry. Pelvic examination with speculum shows the vaginal canal to had up adherent type of white discharge to the vaginal lu. Further evaluation down into the cervical office area shows the cervix to appear normal with some slight desquamation around the eyes. No active herpes lesions were noted. No discomfort or pain with palpation of the cervix. No indication of an STD at this time. Musculoskeletal: Normal range of motion, no pitting or edema. No cyanosis. NEUROLOGICAL: . Normal speech, normal gait. Normal sensory, motor exams PSYCH: Normal mood, normal affect. SKIN: Warm, Dry, normal turgor, no rashes or lesions noted. Course - Re-evaluation Re-evalutation: 04/02/20 15:25 Patient's labs came back with urine looking normal. Her wet prep came back also this showed large amount of bacteria but no trichomonas end of the clean and Cesar did not show any chlamydia or gonorrhea. We are treating her bacterial vaginosis. - Vital Signs Vital signs: Temp Pulse Resp BP Pulse Ox 97.9 F 94 16 113/68 98 04/02/20 07:49 04/02/20 11:47 04/02/20 11:47 04/02/20 11:47 04/02/20 11:47 - Laboratory Laboratory results interpreted by me: 04/02/20 08:45 Urine Glucose (UA) >=500 H Urine Ketones 80 H Discharge - Discharge Clinical Impression: Bacterial vaginosis Condition: Stable Disposition: HOME, SELF-CARE Instructions: Vaginosis, Bacterial ([facility]) Additional Instructions: As we discussed x2 to make an appointment with follow-up [facility] since this is the second time this is occurred. Highly recommend he do so within the next week or 2. Going to treat this as bacterial vaginosis one more time. Should you have any other concerns or problems you can return to ER for reevaluation however the [facility] is going to be your specialist to handle this matter. Prescriptions: Metronidazole [Flagyl 500 mg Tablet] 500 mg PO BID #20 tablet Forms: Elevated Blood Pressure Referrals: NILA TORRES MD [ACTIVE STAFF] - Follow up as needed
[2020-04-02 11:48] VITALS: BP 113/68
== END 2020-04-02 11:47 | disposition home or self-care (01) ==
LOC: ER 07:45
DX: N76.0 Acute vaginitis (principal); B96.89 Other specified bacterial agents as the cause of diseases classified elsewhere
CPT/HCPCS: 81001; 87210; 87491; 87591; 99283